=== PATIENT | male | born 1965 | race Caucasian/White ===

== ENCOUNTER 2022-08-13 06:31 | Day surgery (SDC) | payer OTHER ==
[~2022-08-13] VITALS: Ht 193 cm; Wt 118.0 kg
[~2022-08-13 06:31] MED LIST: MULVITA PO
--- NOTE | 2022-08-13 10:44 | NUR ---
Patient up to Ambulate independently. Gait steady. Discharge instructions reviewed with patient. Patient verbalizes understanding. Copy given to patient to take home. AT BEDSIDE FOR INSTRUCTION. MEDICATED TIMES 2 FOR C/O PAIN. DENIES NAUSEA.
--- NOTE | 2022-08-14 09:32 | NUR ---
08/14/22 0932 Bebe Goetz VERIFICATIONS: EDIT CHART.
== END 2022-08-13 23:31 | disposition home or self-care (01) ==
LOC: ORSCMMR 06:31 → ORD 07:30 → ORSCMMR 07:30
PROVIDERS: Surgery
PROC: 0WUF4JZ Supplement Abdominal Wall with Synthetic Substitute, Percutaneous Endoscopic Approach (ICD-10-PCS; principal; 2022-08-13 07:30)
PROC: 3E0M45Z Introduction of Adhesion Barrier into Peritoneal Cavity, Percutaneous Endoscopic Approach (ICD-10-PCS; principal; 2022-08-13 07:30)
DX: K42.0 Umbilical hernia with obstruction, without gangrene (principal); K43.6 Other and unspecified ventral hernia with obstruction, without gangrene
CPT/HCPCS: 93005; 93010; A9270; C1781; J0690; J1100; J2250; J2370; J2405; J2704; J2795; J3010; J7120